=== PATIENT | male | born 2000 | race Caucasian/White ===

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

== ENCOUNTER 2021-01-03 01:37 | Emergency (ER) | payer OTHER ==
[~2021-01-03] VITALS: Ht 175.3 cm; Wt 72.6 kg
--- NOTE | ~2021-01-03 | EMS ---
[facility] [address] [place] [address] EMS Patient Care Report Name: JAZMÍN BROWN Room #: REG [facility]..#: [id number] Admission: 01/03/21 Attend Phys: Discharge: Date of : 01 Report #: [id number] THIS REPORT FOR: //name// Report Transmitted: 01/03/2021 01:28 EMS Care Summary [place], [place]/[facility] Incident [id number] @ 01/03/2021 01:01 Incident Location [address] [place] [address] Patient JAZMÍN BROWN Male, 20 Years 2000 Patient Address Chief Complaint overdose Disposition Transported No Lights/[place] Dispatch Reason Overdose/Poisoning/Ingestion Transported To [facility] Narrative pt found seated on parent's front porch. he is extremely lethargic and they are trying to keep him awake. pt girlfriend states she thinks he took 6 fentanyl tabs in an attempt to get high. pt is not forthcoming with any info. pt seated on cot, tx as listed in flow chart. he is to be eval at [facility]. transport non emergency. pt has copious amounts of liquid vomit enroute. no other changes Initial Vitals @01:26P: 124,R: 18,BP: 159/93,Pain: 0/10,GCS: 13,Glucose: 115,SpO2: 99,Revised Trauma: 12, @01:35P: 106,R: 18,GCS: 15,SpO2: 99, Assessments [facility] [address] [place] [address] EMS Patient Care Report Name: JAZMÍN BROWN [place] Room #: REG [facility]#: [id number] Admission: 01/03/21 Attend Phys: Discharge: Date of : 01 Report #: [id number] @01:20MENTAL:Person Oriented,Other,SKIN:No Abnormalities,HEENT:Eyes: Left Pupil: 3-mm,Eyes: Right Pupil: 3-mm,LUNG SOUNDS:ABDOMEN:PELVIS//GI:EXTREMITIES:PULSE:Radial: 2+ Normal,NEURO:Abnormal Gait,Other,Slurred Speech,@01:35MENTAL:Other,Place Oriented,Person Oriented,SKIN:No Abnormalities,HEENT:Eyes: Right Pupil: 4-mm,Eyes: Left Pupil: 4-mm,LUNG SOUNDS:General: Nausea,General: Vomiting,ABDOMEN:General: Nausea,General: Vomiting,PELVIS//GI:EXTREMITIES:Right Arm: Other,Left Arm: Other,PULSE:NEURO: Impression Overdose - Synthetic narcotics Procedures @01:20 ALS Assessment Response: Unchanged @01:26 3-Lead ECG Response: Unchanged @01:27 Narcan - 1 Milligrams (mg) - Intravenous (IV) Response: Improved @01:24 Stretcher Response: Unchanged @01:25 IV Therapy - Saline Lock 10cc (20 ga) Site: Antecubital-Left Response: UnchangedSucceeded Timeline 00:59,Call Received 00:59,Dispatch Notified :,Dispatched :01,En Route 01:18,On Scene 01:20,At Patient 01:20,ALS Assessment,Response: Unchanged 01:24,Stretcher,Response: Unchanged 01:25,IV Therapy - Saline Lock 10cc 20 ga Site: Antecubital-Left,Response: UnchangedSucceeded, 01:26,3-Lead ECG,Response: Unchanged 01:26,BP: 159/93 M,PULSE: 124,RR: 18 R,SPO2: 99 Ox,ETCO2: ,B,PAIN: 0,GCS: 13, 01:27,Narcan - 1 Milligrams (mg) - Intravenous (IV),Response: Improved 01:28,Depart Scene 01:35,At Destination 01:35,BP: / M,PULSE: 106,RR: 18 R,SPO2: 99 Ox,ETCO2: ,BG: ,PAIN: ,GCS: 15, 01:51,Call Closed Disclaimer v1.1 Copyright 2020 [employer] This EMS Care Summary contains data elements from the applicable legal record (which may be displayed differently). It is designed to provide pertinent information for the following purposes: continuity of care, clinical quality, [address] [address] EMS Patient Care Report Name: JAZMÍN BROWN Room #: REG [facility]#: [id number] Admission: 01/03/21 Attend Phys: Discharge: Date of : 01 Report #: [id number] and state data reporting. The complete legal record is available to ED staff and administrators of the receiving hospital in [employer]'s Patient Tracker. All data is provided "as is."
[~2021-01-03 01:37] MED LIST: NORCO5 PO
[2021-01-03 05:45] VITALS: BP 109/52
== END 2021-01-03 05:50 | disposition home or self-care (01) ==
LOC: ER 01:37
DX: T40.2X1A Poisoning by other opioids, accidental (unintentional), initial encounter (principal); Y92.89 Other specified places as the place of occurrence of the external cause; Z90.89 Acquired absence of other organs; Z79.899 Other long term (current) drug therapy